=== PATIENT | male | born 1995 | race Caucasian/White ===

== ENCOUNTER 2025-02-25 01:26 | Emergency (ER) | payer OTHER ==
[~2025-02-25] VITALS: Ht 185.4 cm; Wt 66.0 kg
[2025-02-25 01:31] VITALS: PULSE 75; RESP 16; O2SAT 99
[2025-02-25 01:36] VITALS: BP 118/60; TEMP 36.7; O2SAT 100
[2025-02-25] MEDS ORDERED: LIDO-53 TP (02:03)
[2025-02-25] MEDS ORDERED: NAPR-1176 MT (02:03)
[2025-02-25] MEDS: LIDOCAINE 5% PATCH TOP SCH (02:05)
== END 2025-02-25 02:15 | disposition home or self-care (01) ==
LOC: ER 01:26
DX: M54.2 Cervicalgia (principal); Z79.1 Long term (current) use of non-steroidal anti-inflammatories (NSAID); V49.9XXA Car occupant (driver) (passenger) injured in unspecified traffic accident, initial encounter; Y93.89 Activity, other specified; Y92.89 Other specified places as the place of occurrence of the external cause; Y99.8 Other external cause status
CPT/HCPCS: 99283